=== PATIENT | male | born 1980 | race Caucasian/White ===

== ENCOUNTER 2019-06-29 11:40 | Emergency (ER) | payer OTHER ==
[~2019-06-29] VITALS: Ht 160 cm; Wt 81.7 kg
[2019-06-29] MEDS ORDERED: CYCLOBENZAPRINE5 MG PO (13:36)
[2019-06-29] MEDS ORDERED: MEDROLDOSEPACK PO (13:36)
[2019-06-29] MEDS ORDERED: NORCO 5-325 TA1 EAC1 PO (13:36)
[2019-06-29 13:54] VITALS: BP 134/87
== END 2019-06-29 13:55 | disposition home or self-care (01) ==
LOC: ER 11:40
DX: M51.26 Other intervertebral disc displacement, lumbar region (principal); Z88.0 Allergy status to penicillin; Y04.2XXA Assault by strike against or bumped into by another person, initial encounter; Y92.89 Other specified places as the place of occurrence of the external cause; Y93.89 Activity, other specified; Y99.8 Other external cause status

== ENCOUNTER 2019-07-12 21:12 | Emergency (ER) | payer OTHER ==
[~2019-07-12] VITALS: Ht 177.8 cm; Wt 72.6 kg
[~2019-07-12 21:12] MED LIST: CYCLOBENZAPRINE5 MG PO; MEDROLDOSEPACK PO; NORCO 5-325 TA1 EAC1 PO
[2019-07-12 21:13] VITALS: BP 139/84
[2019-07-12 21:54] LABS: URINE BILIRUBIN NEGATIVE (Negative); URINE BLOOD NEGATIVE (Negative); URINE CLARITY CLEAR; URINE COLOR YELLOW; URINE GLUCOSE-RANDOM* NEGATIVE (Negative); URINE KETONES NEGATIVE (Negative); URINE LEUKOCYTES-REFLEX NEGATIVE (Negative); URINE NITRITE-REFLEX NEGATIVE (Negative); URINE PROTEIN (DIPSTICK) NEGATIVE (Negative); URINE UROBILINOGEN 0.2 E.U./dl (0.2-1.0)
[2019-07-12 22:03] LABS: AMP/METHAMP POSITIVE (Negative); BARBITURATES Negative (Negative); BENZODIAZEPINES Negative (Negative); COCAINE Negative (Negative); METHADONE Negative (Negative); OPIATES Negative (Negative); PCP Negative (Negative)
[2019-07-12] MEDS ORDERED: FLEXERIL PO (22:09)
[2019-07-12] MEDS ORDERED: MEDROLDOSEPACK PO (22:09)
[2019-07-12] MEDS ORDERED: NAPROSYN500 MG PO (22:09)
== END 2019-07-12 22:35 | disposition home or self-care (01) ==
LOC: ER 21:12
PROVIDERS: Emergency Medicine
DX: M54.41 Lumbago with sciatica, right side (principal); F17.210 Nicotine dependence, cigarettes, uncomplicated; Z88.0 Allergy status to penicillin

== ENCOUNTER 2019-08-06 10:39 | Emergency (ER) | payer OTHER ==
[~2019-08-06] VITALS: Ht 177.8 cm; Wt 74.8 kg
[~2019-08-06 10:39] MED LIST changes: +FLEXERIL PO; +NAPROSYN500 MG PO
[2019-08-06] MEDS ORDERED: SERTRALINE HCL25 MG PO (11:05)
[2019-08-06] MEDS ORDERED: CELEBREX50 MG PO (11:06)
[2019-08-06] MEDS ORDERED: CYCLOBENZAPRINE10 MG PO (12:07)
[2019-08-06] MEDS ORDERED: MELOXICAM15 MG PO (12:07)
[2019-08-06 12:10] VITALS: BP 133/90
== END 2019-08-06 12:15 | disposition home or self-care (01) ==
LOC: ER 10:39
DX: M54.41 Lumbago with sciatica, right side (principal); G89.29 Other chronic pain; F41.9 Anxiety disorder, unspecified; F32.9 Major depressive disorder, single episode, unspecified; F17.210 Nicotine dependence, cigarettes, uncomplicated; Z88.0 Allergy status to penicillin

== ENCOUNTER 2019-08-21 12:27 | Emergency (ER) | payer OTHER ==
[~2019-08-21] VITALS: Ht 177.8 cm; Wt 72.6 kg
[~2019-08-21 12:27] MED LIST changes: +CELEBREX50 MG PO; +CYCLOBENZAPRINE10 MG PO; +MELOXICAM15 MG PO; +SERTRALINE HCL25 MG PO
[2019-08-21 12:36] VITALS: BP 153/82
[2019-08-21] MEDS ORDERED: MEDROLDOSEPACK PO (12:57)
[2019-08-21] MEDS ORDERED: NORFLEX100 MG PO (12:57)
== END 2019-08-21 13:10 | disposition home or self-care (01) ==
LOC: ER 12:27
DX: M54.41 Lumbago with sciatica, right side (principal); F41.9 Anxiety disorder, unspecified; F32.9 Major depressive disorder, single episode, unspecified; F17.210 Nicotine dependence, cigarettes, uncomplicated; Z88.0 Allergy status to penicillin

== ENCOUNTER 2019-08-24 05:12 | Emergency (ER) | payer OTHER ==
[~2019-08-24] VITALS: Ht 177.8 cm; Wt 72.6 kg
[~2019-08-24 05:12] MED LIST changes: +NORFLEX100 MG PO
[2019-08-24 05:13] VITALS: BP 133/85
== END 2019-08-24 05:55 | disposition home or self-care (01) ==
LOC: ER 05:12
DX: G89.29 Other chronic pain (principal); M54.41 Lumbago with sciatica, right side; F41.9 Anxiety disorder, unspecified; F32.9 Major depressive disorder, single episode, unspecified; F17.210 Nicotine dependence, cigarettes, uncomplicated; Z88.0 Allergy status to penicillin

== ENCOUNTER 2020-02-01 21:31 | Emergency (ER) | payer OTHER ==
[~2020-02-01] VITALS: Ht 177.8 cm; Wt 74.8 kg
[2020-02-01 22:29] LABS: BASOPHILS 0.6 % (0.0-2.0); EOSINOPHILS 0.8 % (0.0-3.0); HEMATOCRIT 36.3 % (42.0-52.0); LYMPHOCYTES 17.5 % (24.0-44.0); MCH 30.5 pg (26.0-34.0); MCHC 33.1 g/dL (28.0-37.0); MCV 92.2 fL (80.0-100.0); MONOCYTES 6.6 % (1.0-8.0); PLATELET COUNT 380 thou/uL (150-400); POLYS 74.5 % (36.0-66.0); RBC 3.94 mil/uL (4.50-6.00); RDW 14.5 % (10.5-14.5); WBC 12.1 thou/uL (4.0-11.0)
[2020-02-01 22:36] LABS: ANION GAP 12 mmol/L (7-16); BUN 27 mg/dL (7-18); CHLORIDE 102 mmol/L (98-107); CO2 25 mmol/L (21-32); CREATININE 1.2 mg/dL (0.7-1.3); GLUCOSE 92 mg/dL (74-106); SODIUM 139 mmol/L (136-145)
[2020-02-01 22:43] LABS: ALBUMIN 3.3 g/dL (3.4-5.0); SALICYLATE < 2.8 mg/dL (2.8-20.0); SGOT 67 U/L (15-37); SGPT 51 U/L (30-65); TOTAL BILIRUBIN 0.4 mg/dL (0.2-1.0); TOTAL PROTEIN 7.4 g/dL (6.4-8.2)
[2020-02-01 23:13] LABS: URINE BILIRUBIN NEGATIVE (Negative); URINE BLOOD NEGATIVE (Negative); URINE CLARITY CLEAR; URINE COLOR YELLOW; URINE GLUCOSE-RANDOM* NEGATIVE (Negative); URINE KETONES NEGATIVE (Negative); URINE LEUKOCYTES-REFLEX NEGATIVE (Negative); URINE NITRITE-REFLEX NEGATIVE (Negative); URINE PROTEIN (DIPSTICK) TRACE (Negative); URINE SPECIFIC GRAVITY >= 1.030 (1.005-1.035); URINE UROBILINOGEN 0.2 E.U./dl (0.2-1.0)
[2020-02-01 23:20] LABS: AMP/METHAMP POSITIVE (Negative); BARBITURATES Negative (Negative); BENZODIAZEPINES Negative (Negative); COCAINE Negative (Negative); METHADONE Negative (Negative); OPIATES Negative (Negative); PCP Negative (Negative)
[2020-02-02 13:24] VITALS: BP 125/86
--- NOTE | 2020-02-02 15:27 | EKG ---
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1980 Requested By: Hany Raza Order Number: [id number] MD: Km Raines Measurements Intervals [place] Rate: 102 P: 72 NM: 119 QRS: -3 QRSD: 85 T: 120 QT: 366 QTc: 477 Interpretive Statements Sinus tachycardia Left ventricular hypertrophy Nonspecific T abnormalities, lateral leads Borderline prolonged QT interval No previous ECG available for comparison Electronically Signed On 02-02-2020 15:27:11 CDT by Km Raines [email or web address] <ELECTRONICALLY SIGNED> By: Km Raines MD, FACC 02/02/20 1527 36 36 Km Raines MD, [facility] /EPI
== END 2020-02-01 21:49 ==
LOC: ER 21:31
PROVIDERS: Emergency Medicine
DX: F15.10 Other stimulant abuse, uncomplicated (principal); F17.210 Nicotine dependence, cigarettes, uncomplicated; Z79.899 Other long term (current) drug therapy

== ENCOUNTER 2020-03-31 22:55 | Emergency (ER) | payer OTHER ==
[~2020-03-31] VITALS: Ht 177.8 cm; Wt 68.0 kg
[2020-03-31] MEDS ORDERED: [UNRECOGNIZED DRUG - REMARK] (23:21)
[2020-04-01 01:32] VITALS: BP 118/82
== END 2020-04-01 01:34 | disposition left against medical advice (07) ==
LOC: ER 22:55
DX: S00.31XA Abrasion of nose, initial encounter (principal); M54.9 Dorsalgia, unspecified; M54.2 Cervicalgia; F32.9 Major depressive disorder, single episode, unspecified; F41.9 Anxiety disorder, unspecified; F17.210 Nicotine dependence, cigarettes, uncomplicated; Z59.0 Homelessness; Z79.899 Other long term (current) drug therapy; Z88.0 Allergy status to penicillin; Y04.0XXA Assault by unarmed brawl or fight, initial encounter; Y93.89 Activity, other specified; Y92.89 Other specified places as the place of occurrence of the external cause; Y99.8 Other external cause status

== ENCOUNTER 2020-07-01 08:06 | Emergency (ER) | payer OTHER ==
[~2020-07-01] VITALS: Ht 177.8 cm; Wt 74.8 kg
[~2020-07-01 08:06] MED LIST changes: +[UNRECOGNIZED DRUG - REMARK]
[2020-07-01 08:09] VITALS: BP 125/83
[2020-07-01] MEDS ORDERED: ALEVE220 MG PO (08:16)
[2020-07-01 09:03] LABS: ABSOLUTE NEUTROPHILS 11.2 thou/uL (1.4-8.2); BASOPHILS 0.5 % (0.0-2.0); EOSINOPHILS 1.1 % (0.0-3.0); HEMATOCRIT 34.6 % (42.0-52.0); HEMOGLOBIN 11.4 gm/dL (14.0-18.0); LYMPHOCYTES 7.6 % (24.0-44.0); MCH 28.1 pg (26.0-34.0); MCV 85.4 fL (80.0-100.0); MONOCYTES 6.3 % (1.0-8.0); PLATELET COUNT 353 thou/uL (150-400); POLYS 84.5 % (36.0-66.0); RBC 4.06 mil/uL (4.50-6.00); RDW 15.4 % (10.5-14.5); WBC 13.3 thou/uL (4.0-11.0)
[2020-07-01 09:05] LABS: CALCIUM 8.8 mg/dL (8.5-10.1); CREATININE 0.9 mg/dL (0.7-1.3); POTASSIUM 4.2 mmol/L (3.5-5.1)
[2020-07-01 09:12] LABS: ALBUMIN 2.8 g/dL (3.4-5.0); TOTAL BILIRUBIN 0.4 mg/dL (0.2-1.0); TOTAL PROTEIN 6.9 g/dL (6.4-8.2)
[2020-07-01 09:35] LABS: AMP/METHAMP POSITIVE (Negative); BARBITURATES Negative (Negative); BENZODIAZEPINES Negative (Negative); COCAINE Negative (Negative); METHADONE Negative (Negative); OPIATES Negative (Negative); PCP Negative (Negative)
[2020-07-01] MEDS ORDERED: DOXYCYCLINE HY100 M3 PO (10:05)
== END 2020-07-01 11:13 | disposition home or self-care (01) ==
LOC: ER 08:06
PROVIDERS: Emergency Medicine
DX: L03.113 Cellulitis of right upper limb (principal); F42.4 Excoriation (skin-picking) disorder; F15.90 Other stimulant use, unspecified, uncomplicated; F17.210 Nicotine dependence, cigarettes, uncomplicated; F41.9 Anxiety disorder, unspecified; F32.9 Major depressive disorder, single episode, unspecified; Z79.899 Other long term (current) drug therapy; Z88.0 Allergy status to penicillin

== ENCOUNTER 2020-07-27 04:44 | Emergency (ER) | payer OTHER ==
[~2020-07-27 04:44] MED LIST changes: +ALEVE220 MG PO; +DOXYCYCLINE HY100 M3 PO
== END 2020-07-27 05:52 | disposition left against medical advice (07) ==
LOC: ER 04:44
DX: R21 Rash and other nonspecific skin eruption (principal); Z53.21 Procedure and treatment not carried out due to patient leaving prior to being seen by health care provider

== ENCOUNTER 2020-07-31 10:02 | Emergency (ER) | payer OTHER ==
[~2020-07-31] VITALS: Ht 177.8 cm; Wt 74.8 kg
[2020-07-31] MEDS ORDERED: NOHOMEMEDICATIONS (10:10)
[2020-07-31 10:24] VITALS: BP 131/84
[2020-07-31] MEDS ORDERED: HYDROCORTISONE30 GM TOP (11:28)
[2020-07-31] MEDS ORDERED: PREDNISONE 20 M20 M1 PO (11:28)
== END 2020-07-31 11:43 | disposition home or self-care (01) ==
LOC: ER 10:02
DX: T78.49XA Other allergy, initial encounter (principal); R21 Rash and other nonspecific skin eruption; F17.210 Nicotine dependence, cigarettes, uncomplicated; Z88.0 Allergy status to penicillin; X58.XXXA Exposure to other specified factors, initial encounter

== ENCOUNTER 2020-08-03 21:01 | Inpatient (IN) | payer OTHER ==
[~2020-08-03] VITALS: Ht 177.8 cm; Wt 71.1 kg
[~2020-08-03 21:01] MED LIST changes: +HYDROCORTISONE30 GM TOP; +NOHOMEMEDICATIONS; +PREDNISONE 20 M20 M1 PO
[2020-08-03 21:07] VITALS: BP 148/102
[2020-08-03 21:51] LABS: ABSOLUTE NEUTROPHILS 9.5 thou/uL (1.4-8.2); BASOPHILS 1.3 % (0.0-2.0); EOSINOPHILS 0.1 % (0.0-3.0); HEMATOCRIT 36.7 % (42.0-52.0); HEMOGLOBIN 11.3 gm/dL (14.0-18.0); LYMPHOCYTES 13.9 % (24.0-44.0); MCH 26.5 pg (26.0-34.0); MCHC 30.7 g/dL (28.0-37.0); MONOCYTES 12.4 % (1.0-8.0); PLATELET COUNT 336 thou/uL (150-400); POLYS 72.3 % (36.0-66.0); RBC 4.27 mil/uL (4.50-6.00); WBC 13.1 thou/uL (4.0-11.0)
[2020-08-03 22:01] LABS: CALCIUM 8.7 mg/dL (8.5-10.1); CREATININE 1.3 mg/dL (0.7-1.3); POTASSIUM 4.4 mmol/L (3.5-5.1)
[2020-08-03 22:11] LABS: TOTAL BILIRUBIN 0.8 mg/dL (0.2-1.0); TOTAL PROTEIN 7.8 g/dL (6.4-8.2); TROPONIN-I 0.42 ng/mL (<0.06)
[2020-08-04] VITALS (8 sets, daily range): BP systolic 82–148; BP diastolic 60–107
[2020-08-04 00:03] LABS: INR 1.2; PROTIME 12.8 Seconds (9.3-11.4)
--- NOTE | 2020-08-04 00:20 | NUR ---
Called unit but nobody answer phone, it rang for over 5 minutes
--- NOTE | 2020-08-04 00:41 | NUR ---
Called to give report and was told SAM Streeter was in a pt's room and will call back
--- NOTE | 2020-08-04 07:42 | EKG ---
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 : 1980 Requested By: Christian Sanchez Order Number: [id number] MD: Km Raines Measurements Intervals [place] Rate: 114 P: 57 UT: 113 QRS: -52 QRSD: 85 T: 103 QT: 337 QTc: 465 Interpretive Statements Sinus tachycardia Probable left atrial enlargement Left anterior fascicular block Lateral T wave abnormality Compared to ECG 02/01/2020 22:37:09 No significant change was found Electronically Signed On 08-04-2020 7:42:06 CSW by Km Raines [email or web address] <ELECTRONICALLY SIGNED> By: Km Raines MD, [facility] 08/04/20 0742 2256 2256 Km Raines MD, [facility] /EPI
[2020-08-04 09:40] LABS: HEMATOCRIT 33.9 % (42.0-52.0); HEMOGLOBIN 10.4 gm/dL (14.0-18.0)
--- NOTE | 2020-08-04 13:21 | 2DMMODE ---
[facility] [place] [address] 2 D/M-MODE ECHOCARDIOGRAM Name: WILDER JALLOH Room #: 353-P ADM IN .R.#: [id number] Admission: 08/03/20 Attend Phys: James Guo MD Discharge: Date of : 84 Report #: [id number] THIS REPORT FOR: cc: [facility] - Clinic physician unknown [facility] - Clinic physician unknown Km Raines MD [facility] ~ APPROVED REPORT Study performed: 08/04/2020 12:18:25 EXAM: Comprehensive 2D, Doppler, and color-flow Echocardiogram Patient Location: In-Patient Room #: 353 BSA: 1.85 HR: 115 bpm Other Information Study Quality: Good Risk Factors: Cardiac Risk Factors: Smoking Indications Pulmonary Embolism Elevated Troponin Cardiomyopathy 2D Dimensions IVSd: 10.81 (7-11mm) LVOT Diam: 22.25 (18-24mm) LVDd: 59.00 mm PWd: 12.86 (7-11mm) Ascending Ao: 31.46 (22-36mm) LVDs: 49.72 (25-40mm) Left Atrium: 40.92 (27-40mm) Aortic Root: 31.17 mm Volumes Left Atrial Volume (Systole) Single Plane 4CH: 75.01 mL Single Plane 2CH: 60.05 mL LA ESV Index: 41.00 mL/m2 Aortic Valve AoV Peak Cristian.: 0.91 m/s [facility] [address] [address] 2 D/M-MODE ECHOCARDIOGRAM Name: WILDER JALLOH Room #: 353-P [facility] IN ..#: [id number] Admission: 08/03/20 Attend Phys: James Guo MD Discharge: Date of : 84 Report #: [id number] AO Peak Gr.: 3.35 mmHg Mitral Valve E/A Ratio: 1.2 MV Decel. Time: 31.44 ms MV E Max Cristian.: 0.82 m/s MV A Cristian.: 0.68 m/s MV PHT: 9.12 ms Pulmonary Valve PV Peak Cristian.: 0.60 m/s PV Peak Gr.: 1.45 mmHg MS End Vmax: 1.61 m/s Pulmonary Vein P Vein S: 0.42 m/s P Vein A: 0.25 m/s P Vein D: 0.41 m/s P Vein A Dur.: 120.0 msec P Vein S/D Ratio: 1.02 Tricuspid Valve TR Peak Cristian.: 3.61 m/s RAP Estimate: 62.00 mmHg TR Peak Gr.: 52.08 mmHg Left Ventricle Left ventricle is mildly dilated. There is global hypokinesis of the left ventricle. There is normal left ventricular wall thickness. Left ventricular systolic function is severely decreased. LVEF is 25-30%. 1.3cm oval echodensity at LV apex consistent with thrombus. Moderate diastolic dysfunction is present (pseudonormal filling). Right Ventricle Right ventricle is at the upper limits of normal. Right ventricular systolic function is mildly reduced. Atria Left atrium is moderately dilated. Right atrium is moderately dilated. Aortic Valve The aortic valve is normal in structure. No aortic regurgitation is present. There is no aortic valvular stenosis. Mitral Valve The mitral valve is normal in structure. Mild to moderate mitral regurgitation. No evidence of mitral valve stenosis. Tricuspid Valve [facility] [address] [place] [address] 2 D/M-MODE ECHOCARDIOGRAM Name: WILDER JALLOH Room #: 353-P [facility] IN ..#: [id number] Admission: 08/03/20 Attend Phys: James Guo MD Discharge: Date of : 84 Report #: [id number] The tricuspid valve is normal in structure. PAP 60 mmHg Mild to moderate tricuspid regurgitation. Pulmonic Valve The pulmonary valve is normal in structure. There is no pulmonic valvular regurgitation. Great Vessels The aortic root is normal in size. IVC is not well visualized. Pericardium Trace-small pericardial effusion. <Conclusion> Left ventricular systolic function is severely decreased. There is global hypokinesis of the left ventricle. LVEF is 25-30%. 1.3cm oval echodensity at LV apex consistent with thrombus. Moderate diastolic dysfunction is present (pseudonormal filling). The aortic valve is normal in structure. No aortic regurgitation or stenosis. The mitral valve is normal in structure. Mild to moderate mitral regurgitation. The tricuspid valve is normal in structure. Pulmonary artery pressure of 60 mmHg Trace-small pericardial effusion. <ELECTRONICALLY SIGNED> By: Km Raines MD, FACC 08/04/20 132 132 132 Km Raines MD, FACC /INF
[2020-08-04 14:52] LABS: FOLIC ACID 10.2 ng/mL (8.6-58.9)
--- NOTE | 2020-08-04 15:21 | NUR ---
INITIAL ASSESSMENT: Received consult. PASCUAL reviewed chart and spoke with nursing and attending physician. Pt was admitted due to pneumonia. Pt placed in Enhanced Isolation to r/o COVID-19. Test is pending. Pt is afebrile and not requiring O2. Pt is on IV abx and heparin. Per chart, pt is homeless and does not have health insurance. PASCUAL placed call to pt's room. No answer. PASCUAL left voice message on listed contact number for pt ([phone]). Requested call back. [employer] to screen pt. PASCUAL is following to assist as needed with discharge planning.
[2020-08-04 18:54] LABS: HEMATOCRIT 35.6 % (42.0-52.0)
--- NOTE | 2020-08-04 19:25 | NUR ---
PATIENT HAS BEEN QUITE RESTLESS TIS PM. NOTED TAKING OFF HIS IV, COUGHING DRAMATICALLY, WHALING IN THE BED, TRASHING FROM SIDE TO SIDE. ATIVAN GIVEN BUT NOT EFFECTIVE IN CONTROLLING BEHAVIOUR. WILL CONT WITH PLAN OF CARE.
[2020-08-05 03:26] VITALS: BP 147/108
--- NOTE | 2020-08-05 04:44 | NUR ---
PT IS RESTLESS, NOT WANTING TO STAY IN BED. PT IS NOT STEADY ON HIS FEET. REORIENTED PT, REDIRECTED, UNSUCCESSFUL IN ALL ATTEMPTS. PT THEN DEFECATED ON FLOOR AND PROCEEDED TO WALK IN. REPLACED TELE NUMEROUS TIMES. PT WOULD TAKE PATCHES OFF RIGHT IN FRONT OF NURSE. AT APPROX 0250 PT BECAME MORE AGITATED. REMOVED TELE AGAIN, BROKE COMPUTER MOUSE ON COMPUTER IN THE ROOM, THROWING STUFF OUT OF HIS BACK, COMPLAINING ABOUT NOT HAVING HIS LIGHT, ASKING FOR HIS KNIFE AND CIGARETTES. PT TURNED AND LOOKED AT NURSE AND PULLED IV LINE APART. CALLED AND RECEIVED ORDERS FOR RESTRAINTS. BILATERAL SOFT WRIST RESTRAINTS PLACED WITH HELP FROM SECURITY. ATIVAN GIVEN X2 OVER SHIFT. PT NOW RESTING IN BED. PT HAS COUGH THAT IS PRODUCING SOME BLOODY SPUTUM. PT IS AFEBRILE, TELE SHOWS ST.
[2020-08-05 06:19] LABS: HEMATOCRIT 34.4 % (42.0-52.0); HEMOGLOBIN 10.5 gm/dL (14.0-18.0); MCH 26.2 pg (26.0-34.0); MCHC 30.6 g/dL (28.0-37.0); MCV 85.4 fL (80.0-100.0); RBC 4.03 mil/uL (4.50-6.00); RDW 17.1 % (10.5-14.5); WBC 20.3 thou/uL (4.0-11.0)
[2020-08-05 06:39] VITALS: BP 134/97
[2020-08-05 06:49] LABS: CALCIUM 8.8 mg/dL (8.5-10.1); CREATININE 0.9 mg/dL (0.7-1.3); MAGNESIUM 1.8 mg/dL (1.8-2.4); POTASSIUM 4.3 mmol/L (3.5-5.1)
--- NOTE | 2020-08-05 07:03 | HC ---
[facility] [place] [address] CONSULTATION Name: WILDER JALLOH Room #: 216-P ADM IN M.R.#: [id number] Admission: 08/03/20 Attend Phys: James Guo MD Discharge: Date of : 84 Report #: [id number] THIS REPORT FOR: cc: [facility] - Clinic physician unknown [facility] - Clinic physician unknown Samuel Torres MD ~ DATE OF SERVICE: 08/04/2020 INFECTIOUS DISEASE CONSULTATION ATTENDING PHYSICIAN: Dr. Guo. REASON FOR EVALUATION: Hemoptysis with progressive dyspnea about 1 week's duration. Noted somewhat abrupt onset hours prior to presenting. Described as all over chest pain. Denies any significant fevers apparently. He is unable to give me any history. Apparently, he has received some anxiolytics. He does moan basically. He does not open his eyes. Reportedly, he is homeless. Evaluation was undertaken. He had a mild leukocytosis. He did have a normal lymphocyte count. Influenza antigen was negative for both A and B and have elevated hepatic transaminases, AST of 241, ALT of 146. CTA chest PE protocol did show some right upper lobe pulmonary emboli. Lactic acid was elevated at 2.9. Blood cultures collected yesterday are sterile thus far. Echo showed EF of 25-30% with a 1.3 cm oval echo density in the left ventricular apex consistent with thrombus, some mjhs-pa-qbqyploi mitral regurgitation without evidence of vegetations. Empirically started on levofloxacin. Abdominal ultrasound showed splenomegaly without evidence of cirrhosis. Initial coronavirus testing was negative by PCR. Second is pending. ALLERGIES: LISTED TO PENICILLIN. CURRENT MEDICATIONS: Include nicotine patch, guaifenesin, pantoprazole, diazepam, diphenhydramine, ipratropium and albuterol inhaler, acetaminophen, ondansetron, levothyroxine. PAST MEDICAL HISTORY: History of peptic ulcer disease and previous surgical intervention, hepatitis C positive without treatment thus far, anxiety, depression, meth abuse, homeless. SOCIAL HISTORY: Polysubstance abuse including alcohol, illicit drugs, smokes cigarettes. REVIEW OF SYSTEMS: Unobtainable. PHYSICAL EXAMINATION: VITAL SIGNS: Temperature 97.8 with a T-max of 99.5, pulse 120, respirations 16, [facility] [address] [place] [address] CONSULTATION Name: WILDER JALLOH Room #: 216-P [facility] IN [facility].#: [id number] Admission: 08/03/20 Attend Phys: James Guo MD Discharge: Date of : 84 Report #: [id number] blood pressure 142/107, saturation 93%. GENERAL: He appears chronically ill and undernourished. He tends to be writhing when awakened. His eyes stay closed. He has multiple lesions throughout the entirety of his body including upper extremities and thorax primarily. He does have some in lower extremities as well. It is difficult to ascertain. These appear to be eschar, some abraded areas. There is not significant cellulitic process, I do not think. HEENT: Normocephalic. Extraocular muscles intact. NECK: Appears to be supple. LUNGS: Diminished breath sounds. HEART: Tachycardic. I do not appreciate any murmur. ABDOMEN: Somewhat firm. Does have palpable spleen consistent with the splenomegaly. He does react as if it is tender. EXTREMITIES: Distal lower extremities without evidence of peripheral signs of acute bacterial endocarditis. LABORATORY DATA: Abdominal ultrasound as described above, mild hepatic steatosis, no evidence of cirrhosis, splenomegaly. No evidence of cholelithiasis. Venous Doppler showed no evidence bilaterally of any DVT. TSH of 1.461. Echo as noted above. As described above, LV systolic function 25-30% with global hypokinesis, 1.3 oval echo density in the left ventricular apex, some diastolic dysfunction, eulg-qn-gpltmjzu mitral regurgitation. No aortic regurgitation or stenosis. Pulmonary artery pressures 60 mmHg. Troponin 0.31. Blood cultures sterile thus far. Lactic acid 1.7, down from 2.9. ASSESSMENT: 1. Pneumonitis. Appears to be consolidative process involving the right middle lobe with some patchy infiltrates in the lower lobes are present as well. No masses noted. It has been complicated by hemoptysis and diagnosis of pulmonary embolus as well. 2. He has chronic hepatitis C. 3. Polysubstance abuse. 4. Cardiomyopathy with markedly decreased ejection fraction. PLAN: We will continue empiric therapy. Add ceftriaxone. Check urinary antigens. Check additional studies including HIV. We will check other diagnostic testing as well. He is certainly at high risk for infectious complications. Continue supportive care. <ELECTRONICALLY SIGNED> By: Samuel Torres MD 08/05/20 0703 1604 1651 Samuel Torres MD /nt
--- NOTE | 2020-08-05 07:28 | NUR ---
PT ARRIVED TO UNIT APPROX AT 0625. PT DIFFICULT TO AROUSE VIA VERBAL AND TACTILE STIMULATION. PT DROWSY WHEN AWAKENED. PT NOTED TO HAVE LABORED BREATHING WITH RESPIRATIONS AT 32. PT GRUNTING IN BETWEEN RESPIRATIONS WITH INTERMITTENT GRIMACING. FLACC NOTED TO BE 2. PT CONTINUES WITH BILATERAL SOFT WRIST RESTRAINTS IN PLACE. WATCH DISCOVERED UNDER LEFT SOFT WRIST RESTRAINT, REMOVED AND PLACED WITH BELONGINGS. CAPILLARY REFILL SLUGGISH TO LUE, LESS THAN 3SEC IN REMAINDER OF EXTREMITIES. PT ROOM REMAINS NEAR NURSES STATION. FREQUENT MONITORING WILL CONTINUE. REPORT GIVEN TO DAY NURSE FOR ASSUMPTION OF CARE.
[2020-08-05 07:52] VITALS: BP 134/87
[2020-08-05 11:27] VITALS: BP 112/65; BP 135/89
--- NOTE | 2020-08-05 14:14 | NUR ---
Case discussed with the care team. Pt now on CCU, Covid neg. Pt had EGD this am. Very confused and unable to participate in cm assessment. Cardiology requested records from [facility] and will ask for emergency contact,DPOA or AD info as well. Pt is very ill at this time. Will reattempt to get emergency/or next of kin contact from pt as he improves.
[2020-08-05 15:39] LABS: CHOLESTEROL 85 mg/dL (<200); HDL CHOLESTEROL 28 mg/dL (>40); LDL CHOLESTEROL 43 mg/dL (<100); TRIGLYCERIDE 72 mg/dL (<150); VLDL 14 mg/dL (<40)
[2020-08-05 16:58] VITALS: BP 125/86
--- NOTE | 2020-08-05 16:59 | NUR ---
11:00 PT.'S STATUS HAS CHANGED ALOT IN THE LAST 3 HOUR'S OVERALL. HE IS TACHYPENIC WITH RR-32, BLOOD PRESSURE STABLE AND HR IS LA=393'S. FEBRILE 100.8 AND ONLY REESPONDS TO SPEAKING AT HIM VERY LOUDLY OVERALL AND KNOWS HIS NAME ONLY. DR MADDEN AWARE OF NEURO STATUS CHANGE AND MEDICATIONS CHANGED TO REFLECT CWAL COVERAGE IF NEEDED. RESTRAINTS ON BILATERALLY HE WAS ATTEMPTING TO REMOVE HIS IV EARLIER INT HE AM THREE TIMES.
--- NOTE | 2020-08-05 17:11 | NUR ---
PT HAS CALMED DOWN MUCH MORE POST ATIVAN TREATMENTS EARLIER FOR ANXIETY AND TACHYPENIC BREATHING HAS IMPROVED WELL. TO ME HE APPEARS TO BE IN WATHDRAWLS ALMOST. FEVER HAS COME DOWN NOW WELL AND RR =24 MUCH MORE BASELINE AND NORMAL BREATHING NOW.
[2020-08-05 19:30] VITALS: BP 124/91
[2020-08-05 20:55] LABS: HEMATOCRIT 37.3 % (42.0-52.0); HEMOGLOBIN 11.5 gm/dL (14.0-18.0); MCH 26.2 pg (26.0-34.0); MCHC 30.7 g/dL (28.0-37.0); MCV 85.5 fL (80.0-100.0); RBC 4.36 mil/uL (4.50-6.00); WBC 24.8 thou/uL (4.0-11.0)
[2020-08-05 23:06] LABS: HAV IgM AB (ANTI-HAV IgM) Negative (Negative); HEPATITIS B SURFACE AG Negative (Negative); HEPATITIS C VIRUS AB 0.2 (0.0-0.9)
[2020-08-06] VITALS: BP 126/91
[2020-08-06 02:06] LABS: HIV ANTIBODY Non Reactive (Non Reactive)
[2020-08-06 03:20] VITALS: BP 125/91
[2020-08-06 03:33] LABS: HEMATOCRIT 40.2 % (42.0-52.0); HEMOGLOBIN 12.4 gm/dL (14.0-18.0); MCH 26.6 pg (26.0-34.0); MCHC 30.8 g/dL (28.0-37.0); MCV 86.3 fL (80.0-100.0); RBC 4.66 mil/uL (4.50-6.00); RDW 17.3 % (10.5-14.5); WBC 21.3 thou/uL (4.0-11.0)
--- NOTE | 2020-08-06 06:34 | NUR ---
ASSESSMENT CHARTED, MEDS CHARTED GIVEN. PATIENT RESTRAINED IN BED DURING SHIFT. RESTRAINT ORDER RENEWED DURING SHIFT. TOOK OVER PATIENT MIDWAY WHEN QUESTIONS ABOUT WETHER PATIENT IS COVID CLEAR. PATIENT WAS TRANSFERED NURSE SINCE ORIGINAL NURSE DID NOT PASS FIT TEST. PATIENT MAY HAVE EGD TODAY. NPO SINCE MIDNIGHT EXCEPT FOR A FEW ICE CHIPS. SECOND COVID SAMPLE TAKEN. FALL PRECAUTIONS IN PLACE DURING SHIFT.
[2020-08-06 08:30] VITALS: BP 143/89
[2020-08-06 12:30] VITALS: BP 132/75
--- NOTE | 2020-08-06 12:43 | NUR ---
#4F POWER INJECTABLE MIDLINE WAS PLACED FOR HEPARIN IVPB PER HOSPITAL POLICY. LINE WAS TRIMMED TO 12CM. SECURED AND RELEASED FOR USE. A 2ND PIV WAS PLACED FOR VANCO
--- NOTE | 2020-08-06 15:37 | NUR ---
ASSESSMENT CHARTED. PT ALERT AND ORIENTED TO SELF. ST ON TELE. RESTRAINTS D/C @ 0800. PRN ATIVAN GIVEN WITH PARTIAL RELIEF. BED ALARM ON. COVID NEGATIVE X2. HEMOPTYSIS NOTED WITH COUGH. DR. FROST AND DR. RANDHAWA NOTIFIED. NO NEW ORDERS. PT ON HEPARIN GTT.
[2020-08-06 16:00] VITALS: BP 123/84
[2020-08-06 19:30] VITALS: BP 118/77
[2020-08-07 00:25] VITALS: BP 99/73
[2020-08-07 04:00] VITALS: BP 125/88
[2020-08-07 04:58] LABS: HEMATOCRIT 32.8 % (42.0-52.0); MCH 26.2 pg (26.0-34.0); MCHC 30.7 g/dL (28.0-37.0); MCV 85.4 fL (80.0-100.0); RBC 3.84 mil/uL (4.50-6.00); RDW 17.3 % (10.5-14.5); WBC 19.3 thou/uL (4.0-11.0)
--- NOTE | 2020-08-07 05:15 | NUR ---
CARE ASSUMED 1900. PT ANXIOUS, IMPULSSIVE AND IRRITABLE. NO VIOLENT BEHAVIOR NOTED OVERNIGHT. HAD A FEVER OF 102.7 WHICH WAS TREATED WITH TYLENOL X 2. ST ON THE MONITOR AND ALSO TACHYPNEIC BUT DENIES CHEST DISCOMFORT OR SOB. PT WANTS TO CONTINOUSLY EAT AND DRINK. PT ALSO EASY TO REDIRECT AT TIME. ATIVAN GIVEN X 1 FOR AGITATION. NO OTHER CONCERNS. PT IS ONLY ORIENTED TO SELF. MAINTAINED ON HEPARIN DRIP WIH Q6H APPTs. WILL CONTINUE TO MONITOR AND FOLLOW POC. .
[2020-08-07 05:20] LABS: HEMOGLOBIN 10.1 gm/dL (14.0-18.0)
[2020-08-07 08:12] LABS: CALCIUM 8.3 mg/dL (8.5-10.1); CREATININE 1.2 mg/dL (0.7-1.3); POTASSIUM 3.9 mmol/L (3.5-5.1)
[2020-08-07 08:37] VITALS: BP 127/84
--- NOTE | 2020-08-07 14:50 | NUR ---
SPOKE WITH DR. FROST ABOUT PATIENT COMBATIVE PATIENT STATUS. ORDERS TO GIVE 5MG ZYPREXA AND IF PATIENT NOT RESPONSIVE TO TREATMENT, THEN TO MOVE TO ICU AND PLACE ON PRECEDEX GTT. PRIMARY RN JOEL WILL ADMINISTER MEDICATION AND FOLLOW UP WITH PATIENT STATUS.
--- NOTE | 2020-08-07 18:39 | NUR ---
PT VERY COMBATIVE AND VERY RESTLESS THIS SHIFT. PRN ATIVAN GIVEN WITH NO EFFECT. CIWA PROTOCAL INITIATED. STB ON TELE. ORDERS GIVEN FOR RESTRAINTS.
[2020-08-07 20:10] VITALS: BP 111/75
--- NOTE | 2020-08-08 04:42 | NUR ---
PT IS ALERT AND ALERT TO SELF WITH CONFUSION. ETOH PROTOCAL. CWA SCALE 5-8 AT TIMES. HE IS CALM. MEDS GIVEN NEEDED WITH PLAN OF CARE. SEEMS TO CALM HIM DOWN AND RELAX. REMAINS IN RESTRAINTS FIGHTS STAFF AND CAN BE AGGRESSIVE SO REMAINS IN RESTRAINTS AT THIS TIME. ABDOMEN IS FLAT AND SOFT. ON HEPARIN DRIP MAINTAINED PER PROTOCAL SHEET IS ON THE CHART. WILL CONTINUE TO MONITOR AND ASSESS PER MICHELLE
[2020-08-08 08:10] VITALS: BP 141/71
[2020-08-08 09:22] LABS: T-SPOT.TB Negative
[2020-08-08 10:07] LABS: HEMATOCRIT 34.4 % (42.0-52.0); HEMOGLOBIN 10.3 gm/dL (14.0-18.0)
[2020-08-08 11:30] VITALS: BP 134/80
--- NOTE | 2020-08-08 12:16 | NUR ---
pt went to shower and cosed shower door using the restraint he removed from his own arm. water flooded from outside the shower to the room, and towards the hallway, restraint was cut with sissors so door could be opened, pt did not want to return to bed, 3 security officers to room to help deescalate pt, 2.5 haldol given IM with 2 mg iv ativan, pt back to bed, eating lunch, asked for a sitter, but will continue restraints until one available per Dr Reeves.
--- NOTE | 2020-08-08 12:47 | NUR ---
Patient confused with garbled speech. [place]. he has no famlly we can contact. He reports having an brother and mother but do not live in [place]. patient in restraints. Unsure if answers ate accurate. Patient did tell me I could give him a dollar for any further questions. [facility] records faxed and on chart. No advance directive or DPOA paperwork.
[2020-08-08 20:20] VITALS: BP 106/73
[2020-08-08 20:25] VITALS: BP 106/73
[2020-08-09 05:14] VITALS: BP 115/85
[2020-08-09 05:24] LABS: HEMATOCRIT 32.2 % (42.0-52.0); HEMOGLOBIN 9.8 gm/dL (14.0-18.0); MCH 26.1 pg (26.0-34.0); MCHC 30.6 g/dL (28.0-37.0); MCV 85.4 fL (80.0-100.0); RBC 3.77 mil/uL (4.50-6.00); RDW 17.4 % (10.5-14.5)
--- NOTE | 2020-08-09 07:52 | NUR ---
PATIENT DID NOT SLEEP LAST NIGHT. PT IMPULSIVE AND AGGITATED. PRN ATIVAN & HALDOL GIVEN; NOT MUCH EFFECT. CIWA PROTOCOL. CONTINUES TO BE IN WRIST RESTRAINTS. CAN BE AGGRESSIVE AND FIGHT STAFF. VOIDS PER URINAL. SITTER AT BEDSIDE. SR/ST ON THE MONITOR. CONTINUE TO ASESS CLOSELY ACCORDING TO POC.
[2020-08-09 08:08] LABS: SYPHILIS AB Reactive (Non Reactive)
[2020-08-09 09:02] VITALS: BP 124/85
--- NOTE | 2020-08-09 10:07 | PATH ---
[facility] [address] [place] [address] PATHOLOGY RPT PROCEDURE Name: WILDER JALLOH Room #: 216-P ADM IN .R.#: [id number] Admission: 08/03/20 Date of : 84 Discharge: Report #: [id number] Path Case #: [id number] Note [facility] Accession Number: [id number] TESTS RESULT FLAG UNITS REF RANGE LAB Clinician Provided Cytology Information No. of containers..01 Other (Miscellaneous) Source: SPUTUM DIAGNOSIS: 02 SPUTUM NEGATIVE FOR MALIGNANT EPITHELIAL CELLS. PULMONARY MACROPHAGES (DUST CELLS) ARE PRESENT. Pathologist ICD10: 02 R06.02 Signed out by: Sugar Bro MD, Pathologist NPI- [id number] Performed by: Sangeetha Hyde, [employer] Worker ([facility]) Gross description: 01 4ML, RED, 1 TP /LCS 08/05/2020 1358 Local FLAG LEGEND: L-Low Normal,H-High Normal,LL-Alert Low,HH-Alert High <-Panic Low,>-Panic High,A-Abnormal,AA-Critical Abnormal Performed at: [address] [place] [address] Jitendra Lomax MD, [address] [address] Sugar Bro MD, Specimen Comment: A courtesy copy of this report has been sent to [phone], [phone]- Specimen Comment: [id number] Specimen Comment: Report sent to / DR SOSA Specimen Comment: A duplicate report has been generated due to demographic updates. Performed at: [address], [place], [place] [address] MD Jitendra Lomax MD Phone: [phone]
[2020-08-09 11:46] VITALS: BP 148/92
[2020-08-09 15:11] VITALS: BP 133/87
--- NOTE | 2020-08-09 16:51 | NUR ---
ASSUMED CARE OF PT AT SHIFT CHANGE. ASSESSMENTS CHARTED. MEDS GIVEN PER MAR. PT ALERT TO SELF, AGITATED, SPEECH SLURRED, MUMBLED. TRYING TO GET OUT OF BED, IN RESTRAINTS. ATIVAN GIVEN Q2, PT CALMER IN AFTERNOON. PLAN FOR LP TOMORROW, NPO AFTER MIDNIGHT. NEED CONSENT FROM . WILL CONTINUE TO MONITOR AND FOLLOW POC.
[2020-08-09 19:53] VITALS: BP 124/77
[2020-08-09 20:15] VITALS: BP 124/77
[2020-08-10 04:27] VITALS: BP 135/87
[2020-08-10 04:58] LABS: HEMOGLOBIN 11.2 gm/dL (14.0-18.0); MCH 26.4 pg (26.0-34.0); MCHC 31.2 g/dL (28.0-37.0); MCV 84.5 fL (80.0-100.0); RBC 4.26 mil/uL (4.50-6.00); RDW 17.2 % (10.5-14.5)
[2020-08-10 05:25] LABS: ALBUMIN 1.7 g/dL (3.4-5.0); CALCIUM 7.7 mg/dL (8.5-10.1); CREATININE 0.9 mg/dL (0.7-1.3); POTASSIUM 4.7 mmol/L (3.5-5.1); TOTAL BILIRUBIN 0.8 mg/dL (0.2-1.0); TOTAL PROTEIN 5.9 g/dL (6.4-8.2)
[2020-08-10 08:16] VITALS: BP 127/96
[2020-08-10 11:54] VITALS: BP 120/76
[2020-08-10 14:42] LABS: CSF CLARITY CLOUDY; CSF COLOR LIGHT PINK; VOLUME 12 ml
[2020-08-10 14:49] LABS: CSF RBC 4390 /mm3
[2020-08-10 14:54] LABS: CSF GLUCOSE 70 mg/dL (40-70); CSF PROTEIN 37 mg/dL (15-45)
[2020-08-10 15:28] VITALS: BP 112/77
[2020-08-10 15:51] LABS: CSF POLYS 53 %
[2020-08-10 15:52] LABS: CSF EOSINOPHILS 1 %; CSF LYMPHOCYTES 34 % (40-80)
[2020-08-10 15:57] LABS: CSF WBC 26 /mm3 (0-10)
--- NOTE | 2020-08-10 18:29 | NUR ---
PT IS ON CIWA PRECAUTIONS. PT ALERT TO SELF, AND CALLS FOR NURSE OCCASSIONALLY. PT HAD LUMBAR PUNCTURE CONDUCTED TODAY. CRITICAL LAB VALUE FOR WBC 26. DR WEAVER CONSULTED. PT ON NC 1L O2. PT IS ON RESTRAINT PRECAUTIONS. PT HAS BEEN INTERMITTENTLY AGITATED THROUGHOUT THE DAY. POC TO CONTINUE CIWA PRECAUTIONS, ASSESS RESTRAINTS. FALL PRECAUTIONS IN PLACE. NO CONCERNS AT THIS TIME.
[2020-08-10 20:06] LABS: SERUM ALBUMIN 2.3 g/dL (4.0-5.0)
[2020-08-10 20:30] VITALS: BP 113/65
[2020-08-11] VITALS (7 sets, daily range): BP systolic 112–137; BP diastolic 81–92
[2020-08-11 02:52] LABS: HEMATOCRIT 40.3 % (42.0-52.0); HEMOGLOBIN 12.3 gm/dL (14.0-18.0); MCH 26.1 pg (26.0-34.0); MCHC 30.5 g/dL (28.0-37.0); MCV 85.3 fL (80.0-100.0); RBC 4.72 mil/uL (4.50-6.00); RDW 17.6 % (10.5-14.5); WBC 17.5 thou/uL (4.0-11.0)
--- NOTE | 2020-08-11 08:22 | NUR ---
ASSUMED CARE OF THE PATIENT AT 1900; RESTRAINTS; CIWA; MORE ALERT AND EASIER TO UNDERSTAND/FOLLOWS COMMANDS/BECOMES AGITATED EASILY; SR/ST ON THE MONITOR; CIWA/AGITATION MANAGED WITH PRN MEDICATIONS; PLAN IS FOR PATIENT TO CONTINUE CARE AND CURRENT THERAPY; WILL CONTINUE TO MONITOR.
--- NOTE | 2020-08-11 12:10 | NUR ---
A #4F MIDLINE WAS REPLACED IN THE RIGHT UPPER ARM PER POLICY. LINE WAS TRIMMED TO 15CM AND ADVANCED EASILY. LINE SECURED AND RELEASED FOR USE
--- NOTE | 2020-08-11 12:17 | NUR ---
Case discussed with the care team. Pt had LP yesterday for possible dx of neurosyphilis. Pt remains on CIWA and is aggitated easily. [employer] is following along and will reattempt to assist the pt with [place] medicaid application once he is able to participate in conversation. Pt will likely need 2 weeks of IV atb. Dc timeframe is uncertain. Will follow.
--- NOTE | 2020-08-11 20:37 | NUR ---
PT CARE ASSUMED AT 0700. ASSESSMENTS CHARTED. MEDICATIONS CHARTED. JUAN MIDLINE. MED/SURG, NO TELEMETRY. HALOPERIDOL AND LORAZEPAM APPEARS TO HAVE LITTLE EFFFECT O\N PATIENT. PT IN RESTRAINTS, WRIST. OFTEN HUNGRY OR WANTS TO LEAVE.
[2020-08-12] VITALS (8 sets, daily range): BP systolic 110–137; BP diastolic 64–96
--- NOTE | 2020-08-12 06:16 | NUR ---
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
[2020-08-12 14:08] LABS: CSF IgG 2.9 mg/dL (0.0-8.6)
[2020-08-12 17:07] LABS: CSF VDRL Non Reactive (Non Rea:<1:1)
--- NOTE | 2020-08-12 20:24 | NUR ---
PT CARE ASSUMED AT 0700. ASSESSMENTS CHARTED. MEDICATIONS CHARTED. JUAN MIDLINE. INCONTINENT. AGITATED. REFUSED MOST OF BREAKFAST AND DINNER. WANTS TO LEAVE. RESTRAINED.
[2020-08-13 04:45] VITALS: BP 105/72
--- NOTE | 2020-08-13 05:36 | NUR ---
PT SLEPT THROUGH MOST OF THE NIGHT. PT ALERT TO SELF AND PLACE. PT IS CONFUSED; NEEDS REORIENTED FREQUENTLY. WEARING BRIEF; INCONTINENT. CIWA SCORES TONIGHT 8-9. ASSESSMENTS CHARTED. MEDS GIVEN PER EMAR. FALL PRECAUTIONS IN PLACE. CONTINUE TO ASESS CLOSELY ACCORDIN TO POC.
[2020-08-13 08:38] VITALS: BP 117/82
[2020-08-13 16:20] VITALS: BP 127/75
[2020-08-13 20:15] VITALS: BP 102/65
--- NOTE | 2020-08-13 20:44 | NUR ---
RECEIVED PT'S CARE AROUND 0716; PT. ON BED; DROWSY; EQUAL CHEST RISING NOTICED; DURING AM ASSESSMENT PT. AROUSAL TO PAIN; ALERT TO PERSON; AM MEDICATION GIVEN WITH PUDDING; TOOK SOME TIME TO SWALLOW PILLS; AROUND 1130 PT. ALERT TO PERSON; MORE ALERT; REQUESTED TO USE THE BATHROOM; UP TO THE BED SIDE COMMODE; EDUCATED ABOUT CALLING BEFORE GETTING UP FROM BED; ST. UNDERSTANDING; THROUGH THE AFTERNOON CALL MOST OF THE TIME APPROPIATELY; URGENCY TO VOID; EDUCATED ABOUT CALLING AHEAD; NEEDS TO BE REMAINED; D/C RESTRAINS; PRN LORAZEPAM GIVEN ONE TIME DURING THE AFTERNOON; RESTINS MOST OF THE DAY; FOLLOWING COMMANDS; ASSESSMENT CHARGED; FOLLOWING POC; PASSED ON REPORT;
[2020-08-14 04:45] VITALS: BP 119/73
--- NOTE | 2020-08-14 07:10 | NUR ---
PT SLEPT THROUGH MOST OF THE NIGHT. ALERT TO SELF AND PLACE. MEDS GIVEN PER EMAR. ASSESSMENTS CHARTED. PT WEARING BRIEF; UPX1 TO BSC. PT USING CALL LIGHT APPROPRIATELY MOST OF THE TIME; CAN GET IMPULSIVE AND IMPATIENT AND WILL TRY TO GET UP. FALL PRECAUTIONS ARE IN PLACE. SNACKS PROVIDED THROUGHOUT THE NIGHT. CONTINUING TO ASSESS AND MONITOR CLOSELY.
[2020-08-14 08:45] VITALS: BP 124/98
[2020-08-14 16:12] VITALS: BP 120/75
[2020-08-14 20:43] VITALS: BP 104/70
--- NOTE | 2020-08-14 21:16 | NUR ---
RECEIVED PT'S CARE AROUND 0715; PT. ON BED; RESTING WITH EYES CLOSED; EQUAL CHEST RISING; DURING AM ASSESSMENT PT. ALERT TO PERSON AND PLACED; UP TO BED SIDE COMMODE; EDUCATED ABOUT FALL PRECAUTIONS; ST. UNDERSTANDING; NEEDS TO BE REMAINED FROM TIME TO TIME; AM MEDICATIONS GIVEN; C/O PAIN OVER L. BIG TOE; REQUESTED WINDOW COVERING SALES CONSULTANT FROM HIS BACKPACK; EDUCATED ABOUT NO USING WINDOW COVERING SALES CONSULTANT; L. BIG TOE TIP BLACK; SWELLING OVER FEET; PHYSICIAN NOTIFIED DURING ROUNDING; PER PHYSICIAN "IT IS NOT AN INFECTION"; XRAY ORDERED; ST. ACETAMINOPHEN DOES NOT HELP; PHYSICIAN NOTIFIED; ORDERS ON PLACED; THROUGH THE DAY UP TO THE CHAIR TWICE; TOOK A SHOWER DURING THE AFTERNOON; EXCELLENT APPETITE THROUGH THE DAY; EDUCATED ABOUT FLUID INTAKE; ST; ASSESSMENT CHARGED; FOLLOWING POC; PASSED ON REPORT;
--- NOTE | 2020-08-15 05:01 | NUR ---
pt remains alert to self and situation, place uses call light appropriatly for assistance, no c/o pain, vss, npo since mnoc for possible thorocentesis, repositions self in bed and using urinal to void, will con't to monitor per ppoc, plan transfer to room 459 this am.
[2020-08-15 07:45] VITALS: BP 120/86
[2020-08-15 11:15] LABS: CLARITY CLOUDY; COLOR RED; SOURCE THORACENTESIS; TOTAL VOLUME 60 mL
[2020-08-15 12:41] LABS: BF NUCLEATED CELLS 8425 /mm3; BF RBC 13992 /mm3
--- NOTE | 2020-08-15 13:11 | NUR ---
ASSUMED PT CARE THIS AM. FALL PRECAUTIONS IN PLACE. IV PATENT. PT WENT FOR THORACENTESIS THIS AM. PT NOT CALLING APPROPRIATELY WHEN NEEDED, IMPULSIVE. PT LEFT UNIT WITHOUT ALERTING STAFF, WAS FOUND WANDERING THE HALLS. SOON AFTER THIS, WHITE POWDER SUBSTANCE FOUND IN BATHROOM, SECURITY NOTIFIED AND THEY COLLECTED A SAMPLE. 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 UA COLLECTED. PT HAVING DIFFICULTY FULLY OPENING EYES AT THIS TIME. REPORTS NO PAIN. FREQUENT CHECKS COMPLETED.
[2020-08-15 13:48] LABS: BF MACROPHAGE 13 %; BF NEUTROPHILS 70 %
[2020-08-15 14:11] LABS: AMP/METHAMP Negative (Negative); BARBITURATES Negative (Negative); BENZODIAZEPINES Negative (Negative); COCAINE Negative (Negative); METHADONE Negative (Negative); OPIATES Negative (Negative); PCP Negative (Negative)
[2020-08-15 15:24] VITALS: BP 155/90
--- NOTE | 2020-08-15 16:16 | NUR ---
SECURITY NOTIFED TO SEARCH PATIENT BELONGINGS. ROOM STRIPPED. PATIENT HAD METAL TOOLS IN BELONGING BAG. ITEMS TAKEN WITH SECRUITY TO BE HELD UNTIL DISCHARGE. OTHERWISE ALL OTHER BELONGINGS CLEARED BY SECURITY.
--- NOTE | 2020-08-15 18:06 | PATH ---
[facility] [address] [place] [address] PATHOLOGY RPT PROCEDURE Name: WILDER JALLOH Room #: 459-P ADM IN .R.#: [id number] Admission: 08/03/20 Date of : 84 Discharge: Report #: [id number] Path Case #: [id number] Note [facility] Accession Number: [id number] TESTS RESULT FLAG UNITS REF RANGE LAB Clinician Provided Cytology Information No. of containers..01 Other (Miscellaneous) Source: CSF DIAGNOSIS: 02 CSF NEGATIVE FOR MALIGNANT EPITHELIAL CELLS. CHRONIC INFLAMMATION. NEGATIVE FOR VIRAL INCLUSIONS OR PARASITIC ORGANISMS. Pathologist ICD10: 02 J18.9 Signed out by: Sugar Bro MD, Pathologist NPI- [id number] Performed by: Sangeetha Hyde, Furniture Rental Consultant ([facility]) Gross description: 01 1ML, CLEAR PINK, 1 TP /LCS 08/11/2020 1833 Local FLAG LEGEND: L-Low Normal,H-High Normal,LL-Alert Low,HH-Alert High <-Panic Low,>-Panic High,A-Abnormal,AA-Critical Abnormal Performed at: [address] [place] [address] Jitendra Lomax MD, [address] [address] Sugar Bro MD, Performed at: [address], [place], [place] [id number] MD Jitendra Lomax MD Phone: [phone]
[2020-08-15 19:44] VITALS: BP 99/66
[2020-08-15 19:45] VITALS: BP 99/66
--- NOTE | 2020-08-16 03:00 | NUR ---
PT CARE ASSUMED WITH PT IN BED.PT IS A/O X3.PT IS UP WITH STANDBY ASSISTANCE TO THE BATHROOM ALTHOUGH WILL GET UP WITH NO CALL.BED ALARM ON.PT C/O PAIN AND WAS GIVEN IBUPROFEN WITH NO RELIEF.PT HAS A HISTORY OF POLYSUBSTANCE ABUSE.MAC STEWART NOTIFIED ABOUT PAIN AND IBUPROFEN WAS D/C AND TYLENOL PUT IN FOR PAIN MANAGEMENT.PT HAS OLD SCRATCHES ON THIGHS.WILL CONTINUE TO MONITOR
[2020-08-16 10:16] VITALS: BP 111/78
[2020-08-16 12:07] LABS: BODY FLUID ALBUMIN 1.2 g/dL (Not Estab.); BODY FLUID AMYLASE 25 U/L (()); BODY FLUID GLUCOSE 79 mg/dL (()); BODY FLUID LDH 559 IU/L (()); BODY FLUID PROTEIN 2.7 g/dL (())
--- NOTE | 2020-08-16 12:08 | NUR ---
CM VISITED WITH PT THIS AM. CARE TEAM INDICATED THAT PT IS TO HAVE AN MRI BUT THAT HE HAD ELOPED FROM THE MRI AND RETURNED TO UNIT. PT INDICATED THE HE PLANS TO LEAVE AMA AFTER LUNCH. 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 CM ASKED IF PT WAS INTERESTE IN GOING TO A SKILLED NURSING UPON DC. HE STATED THAT HE WASN'T THAT HE IS GOING TO GO TO A FRIENDS HOUSE. HE INDICATED HE HAD TRNASPORTATION. HE CONFIRMED THAT HE HAS A MOTHER AND BROTHER WHO DON'T LIVE LOCALLY AND HE WASN'T ABLE TO PROVIDE CM WITH NAMES OR PHONE NUMBERS FOR THEM. CM EXPLAINED THAT IF PT LEAVES AMA WE AREN'T ABLE TO VOUCHER DC MEDS AND CAN'T PROVIDE TRANSPORT. PT EXPRESSED UNDERSTANDING. DR. BUNCH CONSULTED TO DETERMINE IF PT IS COMPETANT TO LEAVE AMA.
--- NOTE | 2020-08-16 13:23 | NUR ---
ASSUMED PT CARE THIS AM. PT IMPULSIVE, AGGRIVATED. RAN FRMO MRI THIS AM. MADE AWARE. NO COMPLAINTS OF PAIN. IV PATENT. REFUSED AM LABS TO BE DRAWN. PT ATTEMPTED TO LEAVE HOSPITAL, NENA CALLED AND ORDERED A PSYCH EVAL TO DETERMINE IF PT WAS CAPABLE OF MAKING DECISION TO LEAVE AMA. DR BUNCH CONFIRMED PT ABLE TO MAKE DECISION TO LEAVE, AND HOSPITALIST AGREED. PT SIGNED AMA FORM, MIDLINE WAS REMOVED, AND PT LEFT UNIT
[2020-08-16 16:53] LABS: SOURCE THORACENTESIS
--- NOTE | 2020-08-16 19:08 | HC ---
[facility] [place] [address] CONSULTATION Name: WILDER JALLOH Room #: 452-P [facility] IN M.R.#: [id number] Admission: 08/03/20 Attend Phys: Kit Johnson MD Discharge: 08/16/20 Date of : 84 Report #: [id number] THIS REPORT FOR: cc: [facility] - Clinic physician unknown [facility] - Clinic physician unknown Daniel Cortez MD ~ DATE OF SERVICE: 08/05/2020 CHIEF COMPLAINT: Multiple small abrasions and scabs. HISTORY OF PRESENT ILLNESS: This is a 40-year-old male patient who was admitted to the hospital with significant polysubstance abuse. He is homeless, has a history of hepatitis C. He has been coughing and short of breath. He is somnolent. I have difficulty awakening him and he is not able to provide any information about himself. PAST MEDICAL HISTORY: Per the medical records, past medical history is positive for history of sciatic nerve pain, herniated disks. Details are unclear. Hepatitis C, anxiety, depression, methamphetamine abuse, homelessness and multiple crusts and scabs. MEDICATIONS: Include prednisone and hydrocortisone. ALLERGIES: PENICILLIN. SOCIAL HISTORY: A 37-jdib-kixd history of smoking, daily alcohol use and current methamphetamine use as well as marijuana use, all per the patient's medical record. REVIEW OF SYSTEMS: Unobtainable due to the patient's somnolence. He will not answer any questions. PHYSICAL EXAMINATION: VITAL SIGNS: Include temperature 98.5, pulse 107, respiratory rate 16, blood pressure 130/94. GENERAL: This is a somewhat chronically ill-appearing male patient who appears to be mostly somnolent. HEENT: Head is normocephalic. Nose and throat are clear. NECK: Supple. LUNGS: Clear. HEART: Regular rhythm. ABDOMEN: Soft. EXTREMITIES: Demonstrate multiple small scabs on his arms, legs, and thighs. He has some scrotal erythema as well. NEUROLOGIC: The patient is somnolent. He appears to move symmetrically when he [facility] [address] [place] [address] CONSULTATION Name: WILDER JALLOH Room #: 452-P [facility] IN ..#: [id number] Admission: 08/03/20 Attend Phys: Kit Johnson MD Discharge: 08/16/20 Date of : 84 Report #: [id number] does move. He does not respond to verbal or painful stimuli very well. LABORATORY DATA: Sodium 132, potassium 4.3, chloride 97, BUN 19, creatinine 0.9, glucose 109. White blood cell count 20.3 with a hemoglobin of 10.5. CLINICAL IMPRESSION: 1. Multiple scabs to the upper thighs and arms. 2. Pneumonia with hemoptysis. 3. History of anxiety with depression. 4. Transaminitis. 5. Congestive heart failure with elevated troponin. 6. Tobacco use and polysubstance abuse. 7. Homelessness. 8. Moderate protein-calorie malnutrition, albumin 3.0. RECOMMENDATIONS: At this point in time, I think that the general hygiene would be appropriate. No specific dressings to the small scabs. I think these will flake off in time. We will continue to monitor them closely. He is being followed by Psychiatry and the hospitalist group as well as Cardiology. We will continue to follow while here in the hospital. I appreciate being asked to see him in consultation. <ELECTRONICALLY SIGNED> By: Daniel Cortez MD 08/16/201907 51 58 Daniel Cortez MD /nt
--- NOTE | 2020-08-17 15:07 | PATH ---
[facility] [address] [place] [address] PATHOLOGY RPT PROCEDURE Name: WILDER JALLOH Room #: 452-P [facility] IN .#: [id number] Admission: 08/03/20 Date of : 84 Discharge: 08/16/20 Report #: [id number] Path Case #: [id number] Note [facility] Accession Number: [id number] TESTS RESULT FLAG UNITS REF RANGE LAB Clinician Provided Cytology Information No. of containers..01 Other (Miscellaneous) Source: PLEURAL FLUID DIAGNOSIS: 02 PLEURAL FLUID NEGATIVE FOR MALIGNANT EPITHELIAL CELLS. REACTIVE MESOTHELIAL CELLS ARE PRESENT. THIS INTERPRETATION INCLUDES EVALUATION OF A CELL BLOCK. ACUTE AND CHRONIC INFLAMAMTION. Pathologist ICD10: 02 J18.9 Signed out by: 02 Sugar Bro MD, Pathologist NPI- [id number] Performed by: Uli Hyde, Adjutant General ([facility]) Gross description: 01 20ML, CLOUDY ORANGE, 1 TP 1 CB /LCS 08/15/2020 1503 Local FLAG LEGEND: L-Low Normal,H-High Normal,LL-Alert Low,HH-Alert High <-Panic Low,>-Panic High,A-Abnormal,AA-Critical Abnormal Performed at: [address] [place] [address] Jitendra Lomax MD, [address] [address] Sugar Bro MD, Specimen Comment: A duplicate report has been generated due to demographic updates. Performed at: [address], [place], [place] [address] MD Jitendra Lomax MD Phone: [phone]
== END 2020-08-16 13:45 | disposition left against medical advice (07) | DRG 871 ==
LOC: ER 21:01 → EROBS 23:54 → 2N 23:54 → 3W 08-04 01:11 → 2N 08-05 06:35 → 4W 08-15 07:41
PROVIDERS: Emergency Medicine; Hospitalist; Internal Medicine; Internal Medicine Pulmonary Disease; Nurse Practitioner; Nurse Practitioner Family; Pediatrics; Physician Assistant; Psychiatry & Neurology Psychiatry; Specialist; ADMIT Hospitalist; ATTEND Hospitalist
PROC: 05HB33Z Insertion of Infusion Device into Right Basilic Vein, Percutaneous Approach (ICD-10-PCS; principal; 2020-08-06)
PROC: 009U3ZX Drainage of Spinal Canal, Percutaneous Approach, Diagnostic (ICD-10-PCS; 2020-08-11)
PROC: 0W993ZZ Drainage of Right Pleural Cavity, Percutaneous Approach (ICD-10-PCS; 2020-08-15)
DX: A41.9 Sepsis, unspecified organism (principal); I26.99 Other pulmonary embolism without acute cor pulmonale; J18.9 Pneumonia, unspecified organism; G92 Toxic encephalopathy; I50.43 Acute on chronic combined systolic (congestive) and diastolic (congestive) heart failure; I21.4 Non-ST elevation (NSTEMI) myocardial infarction; E43 Unspecified severe protein-calorie malnutrition; I42.9 Cardiomyopathy, unspecified; R04.2 Hemoptysis; D62 Acute posthemorrhagic anemia; E87.1 Hypo-osmolality and hyponatremia; F10.139 Alcohol abuse with withdrawal, unspecified; N17.9 Acute kidney failure, unspecified; J91.8 Pleural effusion in other conditions classified elsewhere; F41.9 Anxiety disorder, unspecified; F32.9 Major depressive disorder, single episode, unspecified; N49.2 Inflammatory disorders of scrotum; T24.202A Burn of second degree of unspecified site of left lower limb, except ankle and foot, initial encounter; R74.01 Elevation of levels of liver transaminase levels; F17.210 Nicotine dependence, cigarettes, uncomplicated; F19.10 Other psychoactive substance abuse, uncomplicated; B19.20 Unspecified viral hepatitis C without hepatic coma; Z20.822 Contact with and (suspected) exposure to COVID-19; E87.8 Other disorders of electrolyte and fluid balance, not elsewhere classified; F29 Unspecified psychosis not due to a substance or known physiological condition; A53.9 Syphilis, unspecified; Z88.0 Allergy status to penicillin; Z68.22 Body mass index [BMI] 22.0-22.9, adult; Z59.0 Homelessness; Z87.11 Personal history of peptic ulcer disease; Z71.41 Alcohol abuse counseling and surveillance of alcoholic; Z71.6 Tobacco abuse counseling; Z79.899 Other long term (current) drug therapy; Z53.29 Procedure and treatment not carried out because of patient's decision for other reasons
CPT/HCPCS: 10040; 10081; 10879; 27000

== ENCOUNTER 2020-08-31 01:55 | Inpatient (IN) | payer OTHER ==
[~2020-08-31] VITALS: Ht 177.8 cm; Wt 72.6 kg
[2020-08-31 01:56] VITALS: BP 141/92
[2020-08-31 02:51] LABS: ABSOLUTE NEUTROPHILS 11.3 thou/uL (1.4-8.2); BASOPHILS 0.9 % (0.0-2.0); EOSINOPHILS 1.8 % (0.0-3.0); HEMATOCRIT 26.9 % (42.0-52.0); HEMOGLOBIN 8.5 gm/dL (14.0-18.0); LYMPHOCYTES 15.3 % (24.0-44.0); MCH 25.3 pg (26.0-34.0); MCHC 31.5 g/dL (28.0-37.0); MCV 80.3 fL (80.0-100.0); MONOCYTES 10.3 % (1.0-8.0); PLATELET COUNT 882 thou/uL (150-400); POLYS 71.7 % (36.0-66.0); RBC 3.35 mil/uL (4.50-6.00); RDW 17.5 % (10.5-14.5); WBC 15.8 thou/uL (4.0-11.0)
[2020-08-31 02:56] LABS: INR 1.8; PROTIME 18.1 Seconds (9.3-11.4)
[2020-08-31 02:58] LABS: ANION GAP 10 mmol/L (7-16); BUN 19 mg/dL (7-18); CALCIUM 8.9 mg/dL (8.5-10.1); CHLORIDE 100 mmol/L (98-107); CO2 26 mmol/L (21-32); CREATININE 0.8 mg/dL (0.7-1.3); GLUCOSE 106 mg/dL (74-106); POTASSIUM 4.9 mmol/L (3.5-5.1); SODIUM 136 mmol/L (136-145)
[2020-08-31 03:12] LABS: ALBUMIN 2.2 g/dL (3.4-5.0); SGOT 101 U/L (15-37); SGPT 111 U/L (30-65); TOTAL BILIRUBIN 0.2 mg/dL (0.2-1.0); TOTAL PROTEIN 8.2 g/dL (6.4-8.2); TROPONIN-I <0.06 ng/mL (<0.06)
[2020-08-31 03:24] LABS: DIGOXIN 0.3 ng/mL (0.9-2.0)
[2020-08-31 06:58] VITALS: BP 116/69
--- NOTE | 2020-08-31 07:27 | EKG ---
[place] [address] [facility] [address] [place] [address] ELECTROCARDIOGRAM REPORT Name: WILDER JALLOH Room #: 170-6 ADM IN M.R.#: [id number] Admission: 08/31/20 Attend Phys: Jose Maria Jenkins Discharge: Date of : 84 Report #: [id number] [facility] ED Test Date: 2020-08-31 Test Time: 02:00:10 Pat Name: WILDER JALLOH Department: Room: 170 Gender: M Rn Pain Management: : 1980 Requested By: Min Hui Order Number: [id number] MD: Jay Bernal Measurements Intervals [place] Rate: 128 P: 42 GA: 119 QRS: -33 QRSD: 82 T: 64 QT: 305 QTc: 445 Interpretive Statements Sinus tachycardia Probable left atrial enlargement LVH with secondary repolarization abnormality Compared to ECG 08/03/2020 22:56:31 Left ventricular hypertrophy now present Early repolarization now present Left anterior fascicular block no longer present T-wave abnormality no longer present Electronically Signed On 08-31-2020 7:27:27 FOOD AND BEVERAGE ASSISTANT by Jay Bernal [email or web address] <ELECTRONICALLY SIGNED> By: Jay Bernal MD, FACC 08/31/20 0727 9 0200 Jay Bernal MD, [facility] /EPI
[2020-08-31 08:55] VITALS: BP 116/69
== END 2020-08-31 09:04 | disposition left against medical advice (07) | DRG 194 ==
LOC: ER 01:55 → EROBS 04:57
PROVIDERS: Emergency Medicine; ADMIT Hospitalist; ATTEND Hospitalist
DX: J18.9 Pneumonia, unspecified organism (principal); I50.20 Unspecified systolic (congestive) heart failure; I96 Gangrene, not elsewhere classified; I42.9 Cardiomyopathy, unspecified; F41.9 Anxiety disorder, unspecified; F32.9 Major depressive disorder, single episode, unspecified; F17.210 Nicotine dependence, cigarettes, uncomplicated; F19.10 Other psychoactive substance abuse, uncomplicated; Z20.822 Contact with and (suspected) exposure to COVID-19; F29 Unspecified psychosis not due to a substance or known physiological condition; Z53.29 Procedure and treatment not carried out because of patient's decision for other reasons; I27.20 Pulmonary hypertension, unspecified; Z88.0 Allergy status to penicillin; Z86.19 Personal history of other infectious and parasitic diseases; Z87.11 Personal history of peptic ulcer disease; Z86.14 Personal history of Methicillin resistant Staphylococcus aureus infection; Z91.14 Patient's other noncompliance with medication regimen; Z79.899 Other long term (current) drug therapy

== ENCOUNTER 2021-01-11 23:22 | Inpatient (IN) | payer OTHER ==
[~2021-01-11] VITALS: Ht 177.8 cm; Wt 67.8 kg
[2021-01-11 23:57] VITALS: BP 106/63
[2021-01-12] MEDS ORDERED: ELIQUIS5 MG (00:10)
[2021-01-12 01:09] LABS: ABSOLUTE NEUTROPHILS 6.6 thou/uL (1.4-8.2); BASOPHILS 0.5 % (0.0-2.0); EOSINOPHILS 0.3 % (0.0-3.0); HEMATOCRIT 39.6 % (42.0-52.0); HEMOGLOBIN 13.1 gm/dL (14.0-18.0); LYMPHOCYTES 17.3 % (24.0-44.0); MCH 26.4 pg (26.0-34.0); MCHC 33.2 g/dL (28.0-37.0); MCV 79.6 fL (80.0-100.0); MONOCYTES 12.5 % (1.0-8.0); PLATELET COUNT 255 thou/uL (150-400); POLYS 69.4 % (36.0-66.0); RBC 4.97 mil/uL (4.50-6.00); RDW 20.6 % (10.5-14.5); WBC 9.5 thou/uL (4.0-11.0)
[2021-01-12 01:12] LABS: CALCIUM 9.1 mg/dL (8.5-10.1); CREATININE 4.6 mg/dL (0.7-1.3); POTASSIUM 3.4 mmol/L (3.5-5.1)
[2021-01-12 01:20] LABS: ALBUMIN 4.4 g/dL (3.4-5.0); DIRECT BILIRUBIN 0.2 mg/dL (<0.1-0.2); TOTAL BILIRUBIN 1.1 mg/dL (0.2-1.0); TOTAL PROTEIN 8.7 g/dL (6.4-8.2)
[2021-01-12 02:49] VITALS: BP 143/88; BP 146/81
[2021-01-12 02:51] VITALS: BP 146/81
[2021-01-12 03:13] VITALS: BP 133/72
[2021-01-12 06:01] LABS: URINE BILIRUBIN NEGATIVE (Negative); URINE BLOOD 3+ (Negative); URINE CLARITY CLEAR; URINE COLOR YELLOW; URINE GLUCOSE-RANDOM* NEGATIVE (Negative); URINE KETONES NEGATIVE (Negative); URINE LEUKOCYTES-REFLEX NEGATIVE (Negative); URINE NITRITE-REFLEX NEGATIVE (Negative); URINE PROTEIN (DIPSTICK) 1+ (Negative); URINE SPECIFIC GRAVITY >= 1.030 (1.005-1.035); URINE UROBILINOGEN 0.2 E.U./dl (0.2-1.0)
[2021-01-12 06:09] LABS: AMP/METHAMP POSITIVE (Negative); BARBITURATES Negative (Negative); BENZODIAZEPINES Negative (Negative); COCAINE Negative (Negative); METHADONE Negative (Negative); OPIATES Negative (Negative); PCP Negative (Negative)
[2021-01-12 07:05] LABS: FINE GRANULAR CASTS 4-10 Moderate /LPF (None Seen); HYALINE CASTS 0-3 Few /LPF (None Seen); SQUAMOUS 0-3 Few /LPF (0-3)
[2021-01-12 07:06] LABS: CRYSTALS None Seen /LPF (None Seen); URINE RBC 3-10 Few /HPF (NONE SEEN); URINE WBC-REFLEX 6-15 Few /HPF (0-5)
[2021-01-12 07:07] LABS: BACTERIA-REFLEX 1-9 Few /HPF (None Seen)
[2021-01-12 07:37] VITALS: BP 130/83
[2021-01-12 16:03] VITALS: BP 121/77
[2021-01-12 19:30] VITALS: BP 125/71
[2021-01-13 04:20] VITALS: BP 121/66
[2021-01-13 07:52] VITALS: BP 117/75
[2021-01-13 09:59] LABS: HEMATOCRIT 35.8 % (42.0-52.0); HEMOGLOBIN 11.8 gm/dL (14.0-18.0); MCH 26.4 pg (26.0-34.0); MCHC 32.9 g/dL (28.0-37.0); MCV 80.3 fL (80.0-100.0); RBC 4.46 mil/uL (4.50-6.00); WBC 4.8 thou/uL (4.0-11.0)
[2021-01-13 10:10] LABS: CALCIUM 8.4 mg/dL (8.5-10.1)
[2021-01-13 10:13] LABS: CREATININE 0.9 mg/dL (0.7-1.3)
[2021-01-13] MEDS ORDERED: XARELTO15 MG PO (12:26)
[2021-01-13] MEDS ORDERED: ACETAMINOPHEN325 M1 PO (12:26)
[2021-01-13] MEDS ORDERED: PROTONIX 20 MG20 M1 PO (12:26)
== END 2021-01-13 11:30 | disposition home or self-care (01) | DRG 682 ==
LOC: ER 23:22 → EROBS 01-12 01:54 → 3W 01-12 02:52
PROVIDERS: Emergency Medicine; Nurse Practitioner Family; ADMIT Hospitalist; ATTEND Hospitalist
DX: N17.9 Acute kidney failure, unspecified (principal); G92 Toxic encephalopathy; I24.0 Acute coronary thrombosis not resulting in myocardial infarction; I42.9 Cardiomyopathy, unspecified; I50.22 Chronic systolic (congestive) heart failure; E86.0 Dehydration; F41.9 Anxiety disorder, unspecified; F32.9 Major depressive disorder, single episode, unspecified; F17.210 Nicotine dependence, cigarettes, uncomplicated; I27.20 Pulmonary hypertension, unspecified; F10.10 Alcohol abuse, uncomplicated; F12.10 Cannabis abuse, uncomplicated; F29 Unspecified psychosis not due to a substance or known physiological condition; K27.9 Peptic ulcer, site unspecified, unspecified as acute or chronic, without hemorrhage or perforation; B18.2 Chronic viral hepatitis C; Z89.412 Acquired absence of left great toe; T67.5XXA Heat exhaustion, unspecified, initial encounter; X58.XXXA Exposure to other specified factors, initial encounter; Y93.89 Activity, other specified; Y92.89 Other specified places as the place of occurrence of the external cause; Y99.8 Other external cause status; Z79.01 Long term (current) use of anticoagulants; Z20.822 Contact with and (suspected) exposure to COVID-19; Z88.0 Allergy status to penicillin; Z86.19 Personal history of other infectious and parasitic diseases; Z87.11 Personal history of peptic ulcer disease; Z86.14 Personal history of Methicillin resistant Staphylococcus aureus infection; Z59.0 Homelessness
CPT/HCPCS: 10879

== ENCOUNTER 2021-01-30 05:24 | Emergency (ER) | payer OTHER ==
[~2021-01-30] VITALS: Ht 177.8 cm; Wt 69.8 kg
[~2021-01-30 05:24] MED LIST changes: +ACETAMINOPHEN325 M1 PO; +ELIQUIS5 MG; +PROTONIX 20 MG20 M1 PO; +XARELTO15 MG PO
[2021-01-30] MEDS ORDERED: CEPHALEXIN500 MG PO (06:14)
[2021-01-30 06:44] VITALS: BP 128/8
--- NOTE | 2021-01-30 09:33 | EKG ---
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 : 1980 Requested By: Phoebe White Order Number: [id number] MD: Jay Bernal Measurements Intervals [place] Rate: 98 P: 58 ND: 133 QRS: -5 QRSD: 101 T: 154 QT: 381 QTc: 487 Interpretive Statements Sinus rhythm Probable LVH with secondary repol abnrm Borderline prolonged QT interval Baseline wander in lead(s) V6 Compared to ECG 08/31/2020 02:00:10 Sinus tachycardia no longer present Electronically Signed On 01-30-2021 9:32:47 CDT by Jay Bernal [email or web address] <ELECTRONICALLY SIGNED> By: Jay Bernal MD, [facility] 01/30/21 0932 9 9 Jay Bernal MD, FAC /EPI
== END 2021-01-30 06:45 | disposition home or self-care (01) ==
LOC: ER 05:24
DX: L02.212 Cutaneous abscess of back [any part, except buttock and flank] (principal); F17.210 Nicotine dependence, cigarettes, uncomplicated; Z88.0 Allergy status to penicillin

== ENCOUNTER 2021-04-30 08:01 | Emergency (ER) | payer OTHER ==
[~2021-04-30] VITALS: Ht 177.8 cm; Wt 74.8 kg
[~2021-04-30 08:01] MED LIST changes: +CEPHALEXIN500 MG PO
[2021-04-30 09:09] LABS: ABSOLUTE NEUTROPHILS 5.4 thou/uL (1.4-8.2); BASOPHILS 0.4 % (0.0-2.0); EOSINOPHILS 1.2 % (0.0-3.0); HEMOGLOBIN 12.5 gm/dL (14.0-18.0); LYMPHOCYTES 26.5 % (24.0-44.0); MCH 27.8 pg (26.0-34.0); MCHC 32.1 g/dL (28.0-37.0); MCV 86.7 fL (80.0-100.0); MONOCYTES 5.3 % (1.0-8.0); PLATELET COUNT 224 thou/uL (150-400); POLYS 66.6 % (36.0-66.0); RDW 15.4 % (10.5-14.5); WBC 8.1 thou/uL (4.0-11.0)
[2021-04-30 09:27] LABS: CALCIUM 8.5 mg/dL (8.5-10.1); CREATININE 0.9 mg/dL (0.7-1.3); POTASSIUM 4.2 mmol/L (3.5-5.1)
[2021-04-30 09:37] LABS: ALBUMIN 3.2 g/dL (3.4-5.0); TOTAL BILIRUBIN 0.4 mg/dL (0.2-1.0); TOTAL PROTEIN 7.1 g/dL (6.4-8.2)
--- NOTE | 2021-04-30 09:40 | EKG ---
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 : 1980 Requested By: Joaquim Guallpa Order Number: [id number] MD: Km Raines Measurements Intervals [place] Rate: 99 P: 39 RI: 115 QRS: -30 QRSD: 97 T: 149 QT: 369 QTc: 474 Interpretive Statements Sinus rhythm Probable left atrial enlargement LVH with secondary repolarization abnormality Compared to ECG 01/30/2021 05:40:39 No significant changes Electronically Signed On 04-30-2021 9:39:55 CDT by Km Raines [email or web address] <ELECTRONICALLY SIGNED> By: Km Raines MD, [facility] 04/30/2139 0 0 Km Raines MD, FACC /EPI
[2021-04-30] MEDS ORDERED: DOXYCYCLINE 10100 MG PO (10:55)
[2021-04-30] MEDS ORDERED: LASIX 40 MG TAB40 M2 PO (10:55)
[2021-04-30 12:03] VITALS: BP 133/99
== END 2021-04-30 12:05 | disposition home or self-care (01) ==
LOC: ER 08:01
PROVIDERS: Emergency Medicine
DX: I50.20 Unspecified systolic (congestive) heart failure (principal); Z20.822 Contact with and (suspected) exposure to COVID-19; J18.9 Pneumonia, unspecified organism; F19.10 Other psychoactive substance abuse, uncomplicated; L98.9 Disorder of the skin and subcutaneous tissue, unspecified; F41.9 Anxiety disorder, unspecified; F32.9 Major depressive disorder, single episode, unspecified; F17.210 Nicotine dependence, cigarettes, uncomplicated; Z88.0 Allergy status to penicillin

== ENCOUNTER 2021-05-27 07:43 | Emergency (ER) | payer OTHER ==
[~2021-05-27] VITALS: Ht 177.8 cm; Wt 77.1 kg
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
[~2021-05-27 07:43] MED LIST changes: +DOXYCYCLINE 10100 MG PO; +LASIX 40 MG TAB40 M2 PO
[2021-05-27 08:07] LABS: ABSOLUTE NEUTROPHILS 2.8 thou/uL (1.4-8.2); BASOPHILS 0.5 % (0.0-2.0); EOSINOPHILS 2.4 % (0.0-3.0); HEMATOCRIT 36.3 % (42.0-52.0); HEMOGLOBIN 11.6 gm/dL (14.0-18.0); LYMPHOCYTES 30.4 % (24.0-44.0); MCH 27.8 pg (26.0-34.0); MCHC 31.9 g/dL (28.0-37.0); MCV 87.3 fL (80.0-100.0); MONOCYTES 10.1 % (1.0-8.0); PLATELET COUNT 221 thou/uL (150-400); POLYS 56.6 % (36.0-66.0); RBC 4.16 mil/uL (4.50-6.00); RDW 16.4 % (10.5-14.5)
[2021-05-27 08:24] LABS: CALCIUM 8.2 mg/dL (8.5-10.1); CREATININE 0.9 mg/dL (0.7-1.3); POTASSIUM 4.2 mmol/L (3.5-5.1)
[2021-05-27] MEDS ORDERED: LASIX 40 MG TAB40 MG PO (09:02)
[2021-05-27 10:01] VITALS: BP 128/72
--- NOTE | 2021-05-29 07:25 | EKG ---
[place] [address] [facility] [place] [address] ELECTROCARDIOGRAM REPORT Name: WILDER JALLOH Room #: DEP [facility]#: [id number] Admission: 05/27/21 Attend Phys: Discharge: 05/27/21 Date of : 84 Report #: [id number] [facility] ED Test Date: 2021-05-27 Test Time: 07:54:25 Pat Name: WILDER JALLOH Department: Room: Gender: Director Camp: : 1980 Requested By: Angel Do Order Number: [id number] MD: Jay Bernal Measurements Intervals [place] Rate: 96 P: 48 PA: 121 QRS: -39 QRSD: 99 T: 144 QT: 372 QTc: 471 Interpretive Statements Sinus rhythm Probable left atrial enlargement LVH with secondary repolarization abnormality Compared to ECG 04/30/2021 09:01:01 No significant changes Electronically Signed On 05-29-2021 7:25:18 CDT by Jay Bernal [email or web address] <ELECTRONICALLY SIGNED> By: Jay Bernal MD, [facility] 05/29/21 0725 0754 0754 Jay Bernal MD, FACC /EPI
== END 2021-05-27 10:03 | disposition home or self-care (01) ==
LOC: ER 07:43
PROVIDERS: Student in an Organized Health Care Education/Training Program
DX: R06.02 Shortness of breath (principal); R07.89 Other chest pain; F41.9 Anxiety disorder, unspecified; F32.9 Major depressive disorder, single episode, unspecified; F17.210 Nicotine dependence, cigarettes, uncomplicated; Z88.0 Allergy status to penicillin

== ENCOUNTER 2021-06-03 03:01 | Inpatient (IN) | payer OTHER ==
[~2021-06-03] VITALS: Ht 177.8 cm; Wt 77.1 kg
[~2021-06-03 03:01] MED LIST changes: +LASIX 40 MG TAB40 MG PO
[2021-06-03 03:04] VITALS: BP 148/91
[2021-06-03 03:46] LABS: ABSOLUTE NEUTROPHILS 5.2 thou/uL (1.4-8.2); BASOPHILS 0.9 % (0.0-2.0); EOSINOPHILS 1.6 % (0.0-3.0); HEMOGLOBIN 11.5 gm/dL (14.0-18.0); LYMPHOCYTES 22.4 % (24.0-44.0); MCH 27.2 pg (26.0-34.0); MCHC 31.9 g/dL (28.0-37.0); MCV 85.2 fL (80.0-100.0); MONOCYTES 9.5 % (1.0-8.0); PLATELET COUNT 271 thou/uL (150-400); POLYS 65.6 % (36.0-66.0); RBC 4.22 mil/uL (4.50-6.00); RDW 16.5 % (10.5-14.5); WBC 7.9 thou/uL (4.0-11.0)
[2021-06-03 03:52] LABS: CALCIUM 8.5 mg/dL (8.5-10.1); CREATININE 1.1 mg/dL (0.7-1.3); POTASSIUM 4.3 mmol/L (3.5-5.1)
[2021-06-03 04:02] LABS: ALBUMIN 2.9 g/dL (3.4-5.0); TOTAL BILIRUBIN 0.5 mg/dL (0.2-1.0); TOTAL PROTEIN 6.3 g/dL (6.4-8.2)
[2021-06-03 04:18] LABS: APTT 23.6 Seconds (24.5-32.8); INR 0.96; PROTIME 10.5 Seconds (10.5-12.1)
[2021-06-03 05:40] LABS: CHOLESTEROL 98 mg/dL (<200); HDL CHOLESTEROL 42 mg/dL (>40); LDL CHOLESTEROL 34 mg/dL (<100); TC:HDL 2.3 Ratio (Not establshd); TRIGLYCERIDE 114 mg/dL (<150); VLDL 23 mg/dL (<40)
[2021-06-03 05:42] LABS: SERUM ASSESSMENT Clear
[2021-06-03 06:08] LABS: URINE BILIRUBIN NEGATIVE (Negative); URINE BLOOD NEGATIVE (Negative); URINE CLARITY CLEAR; URINE COLOR YELLOW; URINE GLUCOSE-RANDOM* NEGATIVE (Negative); URINE KETONES NEGATIVE (Negative); URINE LEUKOCYTES-REFLEX NEGATIVE (Negative); URINE NITRITE-REFLEX NEGATIVE (Negative); URINE PROTEIN (DIPSTICK) NEGATIVE (Negative); URINE SPECIFIC GRAVITY 1.015 (1.005-1.035)
[2021-06-03 06:19] LABS: AMP/METHAMP POSITIVE (Negative); BARBITURATES Negative (Negative); BENZODIAZEPINES Negative (Negative); COCAINE Negative (Negative); METHADONE Negative (Negative); OPIATES Negative (Negative); PCP Negative (Negative)
[2021-06-03 08:01] VITALS: BP 119/83
--- NOTE | 2021-06-03 11:32 | EKG ---
[place] [address] [facility] [place] [address] ELECTROCARDIOGRAM REPORT Name: WILDER JALLOH Room #: 170-2 ADM IN M.R.#: [id number] Admission: 06/03/21 Attend Phys: Amol Gutierrez MD Discharge: Date of : 84 Report #: [id number] [facility] ED Test Date: 2021-06-03 Test Time: 03:42:02 Pat Name: WILDER JALLOH Department: Room: [facility] Gender: M Bath Mix Operator: JUAN JOSE : 1980 Requested By: Joaquim Guallpa Order Number: [id number] MD: Km Raines Measurements Intervals [place] Rate: 111 P: 40 MO: 118 QRS: -45 QRSD: 97 T: 127 QT: 343 QTc: 466 Interpretive Statements Sinus tachycardia Probable left atrial enlargement Left anterior fascicular block Nonspecific ST and T wave abnormality Compared to ECG 05/27/2021 07:54:25 No significant change was found Electronically Signed On 06-03-2021 11:32:46 CDT by Km Raines [email or web address] <ELECTRONICALLY SIGNED> By: Km Raines MD, [facility] 06/03/21 1132 034 1 Km Raines MD, [facility] /EPI
--- NOTE | 2021-06-05 07:39 | NUR ---
ORDERS FOR EVAL AND TREAT HOWEVER Pt DISCHARGED FROM THE E.R. PRIOR TO BEING SEEN
== END 2021-06-03 13:05 | disposition left against medical advice (07) | DRG 947 ==
LOC: ER 03:01 → EROBS 04:58
PROVIDERS: Emergency Medicine; Nurse Practitioner Family; ADMIT Hospitalist; ATTEND Hospitalist
DX: R53.1 Weakness (principal); I50.23 Acute on chronic systolic (congestive) heart failure; I42.9 Cardiomyopathy, unspecified; F41.9 Anxiety disorder, unspecified; F32.9 Major depressive disorder, single episode, unspecified; I27.20 Pulmonary hypertension, unspecified; F17.210 Nicotine dependence, cigarettes, uncomplicated; F19.10 Other psychoactive substance abuse, uncomplicated; F29 Unspecified psychosis not due to a substance or known physiological condition; Z86.19 Personal history of other infectious and parasitic diseases; Z86.711 Personal history of pulmonary embolism; Z91.14 Patient's other noncompliance with medication regimen; Z88.0 Allergy status to penicillin; Z87.11 Personal history of peptic ulcer disease; Z00.00 Encounter for general adult medical examination without abnormal findings; Z59.00 Homelessness unspecified; Z71.6 Tobacco abuse counseling; Z86.14 Personal history of Methicillin resistant Staphylococcus aureus infection; Z53.29 Procedure and treatment not carried out because of patient's decision for other reasons; Z20.822 Contact with and (suspected) exposure to COVID-19

== ENCOUNTER 2021-07-04 02:13 | Emergency (ER) | payer OTHER ==
[~2021-07-04] VITALS: Ht 177.8 cm; Wt 77.1 kg
[2021-07-04] MEDS ORDERED: ELIQUIS5 MG PO ×2 (02:31→02:59)
[2021-07-04] MEDS ORDERED: CARVEDILOL6.25 M1 PO (02:31)
[2021-07-04] MEDS ORDERED: NEURONTIN 300M300 M2 PO (02:32)
[2021-07-04 04:59] VITALS: BP 102/41
== END 2021-07-04 05:00 | disposition home or self-care (01) ==
LOC: ER 02:13
DX: M79.605 Pain in left leg (principal); F12.90 Cannabis use, unspecified, uncomplicated; F17.210 Nicotine dependence, cigarettes, uncomplicated

== ENCOUNTER 2021-07-07 04:03 | Emergency (ER) | payer OTHER ==
[~2021-07-07] VITALS: Ht 175.3 cm; Wt 74.8 kg
[~2021-07-07 04:03] MED LIST changes: +CARVEDILOL6.25 M1 PO; +ELIQUIS5 MG PO; +NEURONTIN 300M300 M2 PO
[2021-07-07 04:06] VITALS: BP 134/85
== END 2021-07-07 04:30 | disposition home or self-care (01) ==
LOC: ER 04:03
DX: M79.605 Pain in left leg (principal); F15.10 Other stimulant abuse, uncomplicated; B19.20 Unspecified viral hepatitis C without hepatic coma; I11.0 Hypertensive heart disease with heart failure; I50.20 Unspecified systolic (congestive) heart failure; I42.9 Cardiomyopathy, unspecified; F17.210 Nicotine dependence, cigarettes, uncomplicated; F41.9 Anxiety disorder, unspecified; F32.9 Major depressive disorder, single episode, unspecified; Z98.890 Other specified postprocedural states; Z59.00 Homelessness unspecified; Z79.891 Long term (current) use of opiate analgesic; Z79.899 Other long term (current) drug therapy; Z88.0 Allergy status to penicillin